=== PATIENT | male | born 1985 | race Two or more races ===

== ENCOUNTER 2022-09-28 03:15 | Emergency (ER) | payer MEDICAID, OTHER ==
[~2022-09-28] VITALS: Ht 157.5 cm; Wt 59.1 kg
[2022-09-28] MEDS ORDERED: HALOPERIDOL LACTATE 5 MG/ML INJ VIAL ONE (03:35)
[2022-09-28] MEDS ORDERED: diphenhdrAMINE HCL 50 MG/1 ML VL ONE (03:36)
[2022-09-28] MEDS ORDERED: LORazepam 2MG/ML-1ML VIAL ONE (03:36)
[2022-09-28] MEDS ORDERED: diphenhdrAMINE HCL 50 MG/1 ML VL IM ONE (03:45)
[2022-09-28] MEDS ORDERED: HALOPERIDOL LACTATE 5 MG/ML INJ VIAL IM ONE (03:45)
[2022-09-28] MEDS ORDERED: LORazepam 2MG/ML-1ML VIAL IM ONE (03:45)
[2022-09-28 04:12] LABS: Basophils # (auto) 0.1 10 ^3/uL (0-0.2); Basophils % (auto) 0.7 % (0.0-2.0); Eosinophils # (auto) 0.6 10 ^3/uL (0-0.8); Hematocrit 49.8 % (41.0-53.0); Lymphocytes # (auto) 5.5 10 ^3/uL (0.4-5.4); Lymphocytes % (auto) 28.4 % (10.0-50.0); Mean Corpuscular Hemoglobin 32.9 pg (28.0-32.0); Mean Corpuscular Volume 96.7 fL (80.0-100.0); Monocytes # (auto) 2.2 10 ^3/uL (0-1.3); Monocytes % (auto) 11.1 % (0.0-12.0); Neutrophils % (auto) 56.8 % (37.0-80.0); Nucleated Red Blood Cells % 0.1 %; Red Blood Cells 5.15 10^6/uL (4.5-5.90); Red Cell Distribution Width 13.4 % (11.8-14.3); White Blood Cell 19.4 10^3/uL (4.4-10.8)
[2022-09-28 04:33] LABS: Albumin 4.2 g/dL (3.4-5.0); Calcium 8.9 mg/dL (8.5-10.1); Potassium 3.3 mmol/L (3.5-5.1)
[2022-09-28 04:37] LABS: BUN/Creatinine Ratio 17.6 (10.0-20.0); Bilirubin, Total 0.3 mg/dL (0.2-1.0); Total Protein 7.9 g/dL (6.4-8.2)
[2022-09-28] MEDS ORDERED: LACTATED RINGER'S 2,000 ML IV ONE (05:45)
[2022-09-28 06:32] LABS: Salicylate 1.8 mg/dL (2.8-20.0)
[2022-09-28 07:05] LABS: Magnesium 2.4 mg/dL (1.6-2.6)
[2022-09-28 07:49] LABS: Acetaminophen < 2.0 ug/mL (10-30)
[2022-09-29 10:35] VITALS: BP 95/60
[2022-09-29 10:49] LABS: Urine Bacteria NONE SEEN /hpf (None Seen); Urine Blood 1+ /uL (Negative); Urine Mucus MODERATE (None Seen); Urine Specific Gravity 1.038 (1.001-1.035); Urine WBC 2 /hpf (0 - 3)
== END 2022-09-29 10:53 | disposition still patient (30) ==
LOC: ER 03:15 → EDBD 03:15 → ER 09-29 10:38
DX: F23 Brief psychotic disorder (principal); D72.829 Elevated white blood cell count, unspecified; E87.6 Hypokalemia; R73.9 Hyperglycemia, unspecified; E87.20 Acidosis, unspecified
CPT/HCPCS: 36415; 71045; 80053; 80320; 80329; 81001; 82010; 82550; 83735; 83930; 84484; 85025; 96360; 96361; 96372; 99285; J1200; J1630; J2060